=== PATIENT | female | born 1985 | race Caucasian/White ===

== ENCOUNTER 2024-06-02 16:22 | Emergency (ER) | payer BC, SELFPAY ==
[2024-06-02 16:24] VITALS: BP 112/73; PULSE 106; RESP 16; TEMP 36.8; O2SAT 98; BMI 25.7
--- NOTE | 2024-06-02 17:42 | ED_ITS ---
HPI - General Adult General Chief complaint: Altered Mental Status Stated complaint: slurred speech past few days Time Seen by Provider: 06/02/24 16:26 History of Present Illness HPI narrative: This 39-year-old female comes in reporting slurred speech or slower speech over the last 2 or 3 days. She feels like this is getting worse. As I speak with her and this encounter I do not notice any change in her speech but I do notice that she seems to have asymmetric lips when she is speaking. Her lips seem to deviate to the right when speaking but otherwise she has no facial asymmetry. The patient states that she has a history of multiple sclerosis which was diagnosed about 12 or 13 years ago. She was on IV steroids for a while but since then has not been on any medications and has been doing well. She wonders if this is a flare up of her MS. She does not report a headache. Related Data Home Medications ?Medication ?Instructions ?Recorded ?Confirmed No Known Home Medications 06/02/24 06/02/24 Allergies Allergy/AdvReac Type Severity Reaction Status Date / Time No Known Drug Allergies Allergy Verified 06/02/24 16:29 Review of Systems Status of ROS: Reports: 10 or more systems reviewed and unremarkable except as noted in History and below Narrative: Constitutional: No fevers, no weight gain or loss. Eyes: No discharge. No vision changes. HENT: No congestion, no sore throat, no ear pain. Cardiovascular: No chest pain, no palpitations. Respiratory: No shortness of breath, no wheezes, no cough. Gastrointestinal: No abdominal pain, no vomiting, no diarrhea. Genitourinary: No dysuria, no hematuria. Musculoskeletal: Normal range of motion. Skin: No rashes, no pruritis. Neurological: No dizziness, weakness, sensory change. She reports slower speech that is slurred at times. Endo/Heme/Allergies: No bruising or bleeding. No polydipsia. Pysch: no suicidality, no anxiety, no insomnia. All other systems reviewed and are negative. [facility] Social History Smoking Status: Current every day smoker What tobacco products do you use: cigarettes Smoking packs per day: 0.5 Smoking cigarettes per day: 10.0 Years smoked: 10 Smoking pack-years: 5.00 Do you use any of these nicotine containing products: Vaping Products Second hand tobacco smoke exposure: Yes How often do you have a drink containing alcohol: monthly or less AUDIT-C Alcohol total score: 1 Non-prescribed substance use: denies use Exam Narrative: Exam Narrative: Constitutional: Well-developed, well-nourished, no acute distress. HEENT: Normocephalic, atraumatic. Neck: Normal range of motion. Nontender. Supple. Heart: Regular. No murmurs. Normal rate. Intact distal pulses. Lungs: Clear to auscultation. No chest discomfort. No wheezes, rhonchi, or rales. Abdomen: Normal bowel sounds. Nontender. No rebound tenderness. Genitalia: Deferred. Back: No midline tenderness. Normal range of motion. Extremities: Normal range of motion. No injury. Skin: Intact. No rash. Warm. No erythema or pallor. Neurologic: No altered sensation. No weakness. Alert and oriented. Tongue is midline. [id number] is normal. No pronator drift. Industrial Machine System Technician strength is equal bilaterally. Able to raise each leg from the bed. When speaking her lips seemed to deviate a bit to the right but otherwise there is no facial asymmetry. Psychiatric: No suicidality. No anxiety or depression. No insomnia. Nursing notes and vitals signs are reviewed. Const: Vital Signs, click to edit/add: Vital Signs - 24 hr 06/02/24 16:24 Temperature 98.2 F Pulse Rate [Pulse Oximeter] 106 H Respiratory Rate 16 Blood Pressure [Ri ght Upper Arm] 112/73 Pulse Oximetry 98 Oxygen Delivery Me thod Room Air Course Vital Signs Vital signs: Initial Vital Signs Temperature 98.2 F 06/02/24 16:24 Temperature Source Temporal Artery Scan 06/02/24 16:24 Pulse Rate 106 H 06/02/24 16:24 Respiratory Rate 16 06/02/24 16:24 Blood Pressure 112/73 06/02/24 16:24 Blood Pressure Mean 86 06/02/24 16:24 Blood Pressure Position Sitting 06/02/24 16:24 Pulse Oximetry 98 06/02/24 16:24 Oxygen Delivery Method Room Air 06/02/24 16:24 Vital Signs Temperature 98.2 F 06/02/24 16:24 Pulse Rate 106 H 06/02/24 16:24 Respiratory Rate 16 06/02/24 16:24 Blood Pressure 112/73 06/02/24 16:24 Pulse Oximetry 98 06/02/24 16:24 Oxygen Delivery Method Room Air 06/02/24 16:24 Temperature 98.2 F 06/02/24 16:24 Pulse Rate 106 H 06/02/24 16:24 Respiratory Rate 16 06/02/24 16:24 Blood Pressure 112/73 06/02/24 16:24 Pulse Oximetry 98 06/02/24 16:24 Oxygen Delivery Method Room Air 06/02/24 16:24 Medical Decision Making MDM Narrative Medical decision making narrative: This patient comes in with speech changes as described above. Her neurologic exam is completely normal except for the fact that her lip seem to deviate to bit to the right when speaking. I did speak with the neurologist food and nutrition professor regarding these findings who recommended an MRI. This is the weekend so MRI is not available here today. The neurologist stated that it would be okay to get this done on Tuesday. I did place an order for this to occur. The patient will hopefully get a call from Radiology when this can occur but I advised her to call for directions if not hearing any such plans. I also advised her regarding signs and symptoms that would indicate a need for return and re-evaluation. Discharge Plan Discharge Clinical Impression: Alteration in speech, Multiple sclerosis Patient Disposition: Home, Self-Care Condition: Stable Additional Instructions: Return on Tuesday for MRI with and without contrast. You should get a call from the radiology department as to when this should occur. If not, call [phone] and ask for the radiology department. Return if worsening symptoms happen. Prescriptions: No Action No Known Home Medications Stand Alone Forms: FD9 Group Info Instructions
--- OUTSIDE RECORDS SUMMARY | 2024-06-02 17:54 | XMS_ITS | Clinical Summary ---
Author Organization [facility] Address [address] [place] [address] Care Team Providers Care Forestry Crew Chief Name Role Phone Jia Gutierrez MD Primary Care Provider Lelia Shannon RD Unavailable [phone] Allergies No known active allergies Medications milk receiver (Dexcom G7 Director Enterprise Sales) for continuous blood glucose monitor (CGM)Indication s:Type 2 diabetes mellitus without complication, without long-term current use of insulin (HC) This is for the glucose MARKETING ADMIN , also order the sensors. 1 Each 12/21/2023 Active sensor (Dexcom G7 Sensor) for continuous blood glucose monitor (CGM)Indication s:Type 2 diabetes mellitus without complication, without long-term current use of insulin (HC) To be used to read blood sugars, change sensor every 10 days. This is for the glucose SENSOR, also order the milk receiver. 9 Each 3 12/21/2023 Active metFORMIN (GLUCOPHAGE XR) 500 mg Extended-Releas e tabletIndicatio ns:Type 2 diabetes mellitus without complication, without long-term current use of insulin (HC) Take 4 Tablets (2,000 mg) by mouth once daily. 400 Tablet 3 03/22/2024 Active empagliflozin (JARDIANCE) 10 mg tabletIndicatio ns:Type 2 diabetes mellitus without complication, without long-term current use of insulin (HC) Take 1 Tablet (10 mg) by mouth once daily. 100 Tablet 03/22/2024 Active Active Problems Problem Noted Date Diagnosed Date Type 2 diabetes mellitus wit hout complication, without long-term current use of insulin 12/12/2023 Iron deficiency anemia 06/15/2016 Multiple sclerosis 07/06/2012 Depression with anxiety Tobacco use Resolved Problems Problem Noted Date Diagnosed Date Resolved Date Pap smear for cervical cancer screening 08/27/2022 03/22/2024 Overview (08/27/2022): 07/2022 NIL/HPV Negative Plan: Pap/HPV testing due in 5 years Prediabetes 07/26/2022 03/22/2024 Outcome of delivery, single liveborn 01/01/2014 02/26/2014 Supervision of other high-ri sk (V23.89) 12/26/2013 06/15/2016 Supervision of other normal 05/04/2013 02/26/2014 Overview (11/27/2013): Has MS- will bottle feed so she can go back on medication - plan for soy formula due to family history of milk protein allergy History gestational diabetes- need to do 1 hour glucose as soon as she is feeling better ( = 127 at 16 weeks ) at 20 ( = 103) and 28 weeks = 144, told to do 3 hour GTT=3/4 pass Hemoglobin = 9.2, started on oral iron twice daily - can recheck at 33 weeks 9.3 History of delivery History of hemorrhage Genetic counseling and antepartal testing discussed - wants the 20-22 week.ultrasound ultrasound reassuring, girl Pediatrics - [place] Some labor symptoms - work up negative 11/06/13 Flu shot given 11/07/2013 Anemia due to acute blood loss 06/07/2010 05/04/2013 PROM (premature rupture of membranes) 06/06/2010 05/04/2013 Normal delivery 06/06/2010 05/04/2013 Other immediate h emorrhage, unspecified as to episode of care 06/06/20102013 Gestational diabetes 04/09/2010 014 Supervision of normal first 11/03/2009 05/04/2013 Tobacco use disorder 014 Encounters Date Type Department Care Team Description 03/22/2024 7:40 AM MOP MAN Office Visit [facility] [address] [place] [address] Jia Gutierrez MD Physical; Diabetes 03/22/2024 Travel from Last 3 Months Immunizations Immunization Administration Dates Next Due AMB Influenza, IIV4 PF (=>6 mos Flulaval,Fluzone Fluarix)(Flu Clinic Only) 01/10/2017 HepA-HepB (Twinrix) 12/12/2023 Influenza, IIV3 (Age >=3 years) 01/12/2010 Influenza, IIV4 11/07/2013 Tdap 12/12/2023,10/09/2013,06/08/2010 Family History Medical History Relation Name Comments No Known Problems Daughter Ainslie Diabetes Father Hyperlipidemia Father Hypertension Father Stroke Father Cystic fibrosis Half-Brother Charley Diabetes Half-Brother Charley Diabetes Maternal Grandfather Type 2 No Known Problems Mother COPD Paternal Grandfather Mesothelioma (HC) Paternal Grandfather Cancer-colon Paternal Grandmother Diabetes Paternal Grandmother Type 2 Stroke Paternal Grandmother Asthma Son Michelet Relation Name Status Comments Daughter Ainslie Alive Father Alive Half-Brother Charley Alive Maternal Grandfather (Age 47) Maternal Grandmother (Age 93) Mother Alive Paternal Grandfather (Age 77) Paternal Grandmother (Age 80) Son Michelet Alive Social History Tobacco Use Types Packs/Day Years Used Date Smoking Tobacco: Every Day Cigarettes 0.5 19.2 Started: 2005 Smokeless Tobacco: Never Tobacco Cessation:Ready to Q uit: No; Counseling Given: Yes Alcohol Use Standard Drinks/Week Comments Yes 1 (1 standard drink = 0.6 oz pur e alcohol) PHQ-2 Answer Date Recorded PHQ-2 TOTAL SCORE 0 03/22/2024 Social Connections Answer Date Recorded Do you often feel lonely or isolated from those around you? 0 12/07/2023 Financial Resource Strain Answer Date R ecorded Difficulty of Paying Living Expenses 3 12/07/2023 Difficulty of Paying Living Expenses Not on file 12/07/2023 Food Insecurity Answer Date Recorded Do you worry your food will run out before you are able to buy more? 1 12/07/2023 Transportation Needs Answer Date Record ed Does lack of transportation keep you from medica l appointments? 1 12/07/2023 Does lack of transportation keep you from work, meetings or getting things that you need? 1 12/07/2023 Housing Stability Answer Date Recorded What is your housing situation today? 1 12/07/2023 Interpersonal Safety Answer Date Record ed Are you being hit, kicked, p ushed or yelled at (see row info)? No 12/05/2023 Interpersonal Safety Abuse 12 - 18 Not on file 12/05/2023 Interpersonal Safety Ambulatory Vulnerability No t on file 12/05/2023 Utilities Answer Date Recorded Do you have trouble paying f or utilities (for example, heat, electricity, water, phone)? 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 file Not on file Not on file Obstetrics History Para Term AB IAB SAB Ectopic Multiple Livin g Live Births 2 2 1 1 0 0 0 0 0 2 2 Date Outcome GA Total Labor Labor/2nd/3rd Weight Sex Type Anes PTL Dee A1 A5 Name Clin 2010 36w 6d 17h 00m/ 3.09 kg (6 lb 13 oz) M Vag Epidur al Y Livin g Michelet Delivery Location:[facility] Comments: he morrhage / gestational diabetes 2013 Term 41w 0d 4h 00m/ 3.4 kg (7 lb 8 oz) F Vag IV Meds N Livin g 9 9 Ainsli e [facility] Delivery Location:[facility] Comments:1st degree re paired Last Filed Vital Signs Vital Sign Reading Time Taken Comments Blood Pressure 108/74 03/22/2024 7:52 AM MOP MAN Pulse 90 03/22/2024 7:52 AM MOP MAN Temperature 36.8 C (98.3 F) 12/05/2023 10:41 AM CDT Respiratory Rate 16 12/05/2023 10:41 AM CDT Oxygen Saturation 97% 03/22/2024 7:52 AM MOP MAN Inhaled Oxygen Concentration - - Weight 65.9 kg (145 lb 3.2 oz) 03/22/2024 7:52 A M MOP MAN Height 159.5 cm (5' 2.8) 03/22/2024 7:52 AM MOP MAN Body Mass Index 25.89 03/22/2024 7:52 AM MOP MAN Plan of Treatment Upcoming Encounters Date Type Department Care Team (Late st Contact Info) Description 06/21/2024 7:40 AM CDT Office Visit [facility] [address] [place], [place] [id number] [place] [address] [place], [place] [id number] Health Maintenance Due Date Last Done Comments Pneumococcal series for age 6-49 (1 of 2 - PCV) 2004 COVID-19 vaccine series (1 - season) 2023 Influenza Vaccine (#1) 2023 7, 11/07/2013, 01/12/2010 Hepatitis B series for Diabe naomi (2 of 3 - Hep B Twinrix 3-dose series) 01/09/2024 12/12/2023 BMI (ht and wt on same day) for age 18+ 03/22/2025 03/22/2024, 07/22/2022, 10/24/2021, Additional history exists Depression screening for age 12+ 03/22/2025 03/22/2024, 07/22/2022, 12/22/2020, Additional history exists Pap test for age 21-65 07/23/2027 , 07/22/2022, 06/15/2016, Additional history exists Tetanus booster 12/11/2033 12/12/2023, 09/12, 06/08/2010 HIV for age 15-65 Completed 05/04/2013, 11/03/2009 Hepatitis C screening for ag e 18-79 Completed 07/22/2022 Tdap Completed 12/12/2023, 09/12, 06/08/2010 Procedures Procedure Name Priority Date/Time Associated Diagnosis Comments URINE ALBUMIN TO CREATININE RATIO, RANDOM Routine 03/22/2024 8:26 AM MOP MAN Type 2 diabetes mellitus without complication, without long-term current use of insulin (HC) LIPID PANEL W REFLEX MEASURED LDL Routine 03/22/2024 7:45 AM MOP MAN Type 2 diabetes mellitus without complication, without long-term current use of insulin (HC) BASIC METABOLIC PANEL Routine 03/22/2024 7:45 AM MOP MAN Type 2 diabetes mellitus without complication, without long-term current use of insulin (HC) HEMOGLOBIN A1C MONITORING (POCT) Routine 03/22/2024 7:43 AM MOP MAN Type 2 diabetes mellitus without complication, without long-term current use of insulin (HC) LC HCV ANTIBODY RFX TO QUANT PCR Routine 07/22/2022 8:20 AM CDT Need for hepatitis C screening test HPV HIGH RISK Routine 07/22/2022 8:00 AM CDT Screening for cervical cancer ANTI HIV 1/2 Routine 05/04/2013 4:12 PM MOP MAN Supervision of other normal from Last 3 Months or Most Recently Relevant to Health Maintenance Results * URINE ALBUMIN TO CREATININE RATIO, RANDOM (03/22/2024 8:26 AM MOP MAN) ALB RAND URINE <12.0 mg/L 03/22/2024 5:19 PM MOP MAN [facility] CREATININE,URINE 1.55 g/L 03/22/19 5:19 PM MOP MAN [facility] ALBUMIN TO CREATININE RATIO,RAND UR 03/22/2024 5:19 PM MOP MAN [facility] Comment:Urine Albumin below measurement range, unable to calculate. Urine URINE SPECIMEN / Unknown Non-Blood / Unknown 03/22/2024 8:26 AM MOP MAN 03/22/2024 8:26 AM MOP MAN Narrative [facility] - 03/22/2024 5:19 PM MOP MAN If Albumin to Creatinine Ratio is elevated, consider the following: Elevations seen with incipient nephropathy associated with diabetes mellitus or hypertension. Stress, exercise,hematuria, and urinary tract infection may also produce elevated results. If clinically indicated, confirm with 24 Hour Albumin to Creatinine Ratio. Jia Gutierrez MD URINE Final R esult [facility] [address] [place] [address], * (ABNORMAL) LIPID PANEL W REFLEX MEASURED LDL (03/22/2024 7:45 AM MOP MAN) CHOLESTEROL, TOTAL 224(H) <200 mg/dL [facility] HDL CHOLESTEROL 41(L) > OR = 50 mg/dL [facility] TRIGLYCERIDES 249(H) <150 mg/dL [facility] Comment: If a non-fasting specimen was collected, consider repeat triglyceride testing on a fasting specimen if clinically indicated. Brodie et al. J. of Clin. Lipidol. 2015;9:129-169. LDL-CHOLESTEROL 145(H) mg/dL (calc) [facility] Comment: Reference range: <100 Desirable range <100 mg/dL for primary prevention; <70 mg/dL for patients with CHD or diabetic patients with > or = 2 CHD risk factors. LDL-C is now calculated using the Randall-Castro calculation, which is a validated novel method providing better accuracy than the Friedewald equation in the estimation of LDL-C. Randall SS et al. BULMARO. 2013;310(19): 5272-7481 (http://education.Liquid Computing/faq/HXP127) CHOL/HDLC RATIO 5.5(H) <5.0 (calc) [facility] NON HDL CHOLESTEROL 183(H) <130 mg/dL (calc) [facility] Comment: For patients with diabetes plus 1 major ASCVD risk factor, treating to a non-HDL-C goal of <100 mg/dL (LDL-C of <70 mg/dL) is considered a therapeutic option. Blood BLOOD SPECIMEN / Unknown 03/22/2024 7:45 AM MOP MAN 03/22/2024 7:45 AM MOP MAN Jia Gutierrez MD CHEMISTRY Final R esult [facility] [address] [address], [place] [phone] [facility] [address] [place] [address] * (ABNORMAL) BASIC METABOLIC PANEL (03/22/2024 7:45 AM MOP MAN) [facility] GLUCOSE 270(H) 65 - 99 mg/dL [facility] Comment: Fasting reference interval For someone without known diabetes, a glucose value >125 mg/dL indicates that they may have diabetes and this should be confirmed with a follow-up test. UREA NITROGEN (BUN) 12 7 - 25 mg/dL [facility] CREATININE 0.71 0.50 - 0.97 mg/dL [facility] EGFR 111 > OR = 60 mL/min/1. 73m2 [facility] BUN/CREATININE RATIO SEE NOTE: 6 - 22 (calc) [facility] Comment: Not Reported: BUN and Creatinine are within reference range. SODIUM 134(L) 135 - 146 mmol/L [facility] POTASSIUM 4.7 3.5 - 5.3 mmol/L [facility] CHLORIDE 99 98 - 110 mmol/L [facility] CARBON DIOXIDE 28 20 - 32 mmol/L [facility] ELECTROLYTE BALANCE 7 7 - 17 mmol/L (calc) [facility] CALCIUM 9.7 8.6 - 10.2 mg/dL [facility] Blood BLOOD SPECIMEN / Unknown 03/22/2024 7:45 AM MOP MAN 03/22/2024 7:45 AM MOP MAN us Jia Gutierrez MD CHEMISTRY Final R esult [facility] [address] [place] [address], [facility] [address] [place] [address] * (ABNORMAL) HEMOGLOBIN A1C MONITORING (POCT) (03/22/2024 7:43 AM MOP MAN) [facility] POC HEMOGLOBIN A1C 8.8(H) <6.0 % OF TOTAL HGB [facility] Comment: Any point of care results exhibiting inconsistency with the patient's clinical status should be repeated using a different testing method. Blood BLOOD SPECIMEN / Unknown 03/22/2024 7:43 AM MOP MAN 03/22/2024 7:43 AM MOP MAN us Jia Gutierrez MD CHEMISTRY Final R esult [facility] [address] [place] [address], [facility] [address] [facility], [place] [address] * LC HCV ANTIBODY RFX TO QUANT PCR (07/22/2022 8:20 AM CDT) [facility] HCV Ab Non Reactive Non Reactive 07/24/2022 1:[address] [facility] Blood BLOOD SPECIMEN / Unknown Venipuncture / Unknown 07/22/2022 8:20 AM CDT 07/22/2022 8:[address] [facility] - 07/24/2022 1:08 PM CDT Performed at: [address] [place] [id number] Oil Pipe Inspector Helper: Kun Grijalva MD, Phone: [phone] us Maria L Soriano MD LABORATORY Final Resul t [facility] [address] [place] [id number] * HPV HIGH RISK (07/22/2022 8:00 AM CDT) [facility] TYPE 16 Negative Negative 07/27/2022 3:52 PM CDT [facility] TYPE 18 Negative Negative 07/27/2022 3:52 PM CDT [facility] OTHER HIGH RISK TYPES Negative Negative 07/27/2022 3:52 PM CDT [facility] Other (Cervical) Non-Blood / Unknown 07/22/2022 8:00 AM CDT 07/26/2022 10:45 AM CDT Narrative [facility] - 07/27/2022 3:52 PM CDT HPV types 16, 18, 31, 33, 35, 39, 45, 51, 52, 56, 58, 59, 66 and 68 DNA were undetectable or below the pre-set threshold. Methodology: Thiago Dorene 4800 HPV Test us Maria L Soriano MD MICROBIOLOGY Final Resul t [facility] [address] [place] [address], * ANTI HIV 1/2 (05/04/2013 4:12 PM MOP MAN) ANTI HIV 1/2 Non-reacti ve [facility] Blood specimen (specimen) BLOOD SPECIMEN / Unknown 05/04/2013 4:12 PM MOP MAN 05/04/2013 4:02 PM MOP MAN us Rashida Evans MD SEND OUTS Final Resu lt [facility] INTERNAL ZIP [address] [place] [address] from Last 3 Months or Most Recently Relevant to Health Maintenance Insurance [facility] Advance Directives * Full Code (Latest Code Status on File) Date Activated Date Inactivated Comments 01/01/2014 9:36 PM 01/03/2014 1:11 PM * Full Code Date Activated Date Inactivated Comments 01/01/2014 8:04 PM 01/01/2014 9:36 PM * Full Code Date Activated Date Inactivated Comments 12/10/2013 9:25 PM 12/11/2013 1:57 AM * Full Code Date Activated Date Inactivated Comments 11/05/2013 10:39 PM 11/06/2013 5:36 AM * Full Code Date Activated Date Inactivated Comments 06/06/2010 8:22 PM 06/08/2010 4:31 PM Care Teams Forestry Crew Chief Relationship Specialty [place] [address] [place] [address] PCP - General Family Practice 12/21/[address] [place] [address] [place] [address] Crocheter Hand Club Attendant 01/05/24 5
== END 2024-06-02 18:12 | disposition home or self-care (01) ==
LOC: ED 17:51
PROVIDERS: Emergency Provider Emergency Medicine Emergency Medical Services
DX: R47.9 Unspecified speech disturbances (principal); G35 Multiple sclerosis
CPT/HCPCS: 99282; 99283; 99284

== ENCOUNTER 2024-06-04 11:34 | Outpatient (CLI) | payer BC, SELFPAY ==
--- NOTE | 2024-06-04 11:15 | CRLHL7_ITS ---
For Patients: As a result of the Century Cures Act, medical imaging exams and procedure reports are released immediately into your electronic medical record. You may view this report before your referring provider. If you have questions, please contact your health care provider. INDICATION: Multiple sclerosis. Slurred speech. COMPARISON: None. TECHNIQUE: Multiplanar T1, T2, FLAIR and diffusion-weighted imaging. Post gadolinium T1 weighted sequences. Dotarem 13 cc IV. FINDINGS: Multiple T2/FLAIR signal hyperdense lesions with the periventricular and subcortical white matter of both cerebral hemispheres compatible with demyelinating plaques. Patchy T2/FLAIR signal hyperintense lesions of the brainstem also likely represent demyelinating plaques. Dominant white matter lesion within the juxtacortical white matter of the posterior right frontal lobe measures 18 mm in diameter and demonstrates mild enhancement (post gadolinium series 10, image 31). Finding is consistent with an actively demyelinating plaque. Similar patchy enhancement of a white matter lesion of the left posterior badillo radiata (series 10, image 28) also concerning for an actively demyelinating plaque. Otherwise, mild T1 hypointense lesion load. No other enhancing white matter lesions. No significant cerebral volume loss or atrophy. No intracranial hemorrhage. No abnormal ventricular dilatation. Intracranial vascular flow voids are preserved. No mass effect or midline shift. No restricted diffusion to suggest acute ischemia. Bilateral orbits are unremarkable. Normal appearing sella. Visualized paranasal sinuses and mastoid air cells are unremarkable. IMPRESSION: 1. Mild supratentorial and infratentorial T2 hyperintense white matter lesions compatible with demyelinating plaques. 2. Enhancement of white matter lesions within the juxtacortical white matter of the posterior right frontal lobe and left posterior badillo radiata likely represent actively demyelinating plaques. 3. Mild T1 hypointense lesion load. 4. No significant cerebral volume loss or atrophy. 5. No intracranial hemorrhage. No restricted diffusion to suggest acute ischemia Dictated by Van De La Garza MD @ 06/04/2024 2:57:29 PM (Electronically Signed)
== END 2024-06-04 11:35 | disposition home or self-care (01) ==
LOC: MRI 11:35
PROVIDERS: PCP Family Medicine; Visit Provider Family Medicine
DX: G35 Multiple sclerosis (principal); G93.9 Disorder of brain, unspecified; R47.81 Slurred speech; R29.810 Facial weakness; Z82.0 Family history of epilepsy and other diseases of the nervous system
CPT/HCPCS: 70553; A9575

== ENCOUNTER 2024-09-17 11:40 | Emergency (ER) | payer BC, SELFPAY ==
--- OUTSIDE RECORDS SUMMARY | 2024-09-17 11:41 | XMS_ITS | Clinical Summary ---
Author Organization [facility] Address [address] , [address] [place] [address] Phone Care Team Providers Care Data Collection Associate Name Role Phone 2CareTeamNurse-MA, 2CareTeamNurse-MA Unavailable Unavailable Conditions or Problems Problem Name Problem Code Onset Date Status Entry Date Provider Comment Standard Description Annotate Vitamin D deficiency 13681300 (SNOMED CT) Active Amy Martinez PA-C Vitamin D deficiency Multiple sclerosis 10392216 (SNOMED CT) Active Mechelle Capone DO Multiple sclerosis Medications Medication Instructions Start Date Stop Date Generic Name [facility] Provider VITAMIN D (ERGOCALCIFER OL) 1.25 MG (70022 UT) CAPS Take 1 tab PO q weekly for 8 weeks ergocalciferol (vitamin d2) [id number] Mechelle Capone DO DEXCOM G7 SENSOR blood-glucose sensor [id number] Mechelle Capone DO Medications Administered No information available. Allergies, Adverse Reactions, Alerts No information available. Results Date Name Value Unit Range Flag Description Replaced Document: (P) HIV 1 /2 ANTIGEN/ANTIBODY,FOURTH GENERATION W/RFL, COMPRE ... VITD 25OH TO * VITAMIN D, 25 OH, TOTAL HCV VIRUS AB * Hepatiti s C virus 5-1-1 Ab [Presence] in Serum by Immunoblot ANTI-HBC * Hepatitis B virus core Ab [Presence] in Serum ANTI-HBS * Hepatitis B virus surface Ab [Presence] in Serum BASOPHIL % 0.4 % N Basophils/ 100 leukocytes in Blood by Manual count EOSINOPHIL % 1.2 % N Eosinoph ils/100 leukocytes in Blood by Manual count MONOCYTE % 4.0 % N Monocytes/ 100 leukocytes in Blood by Automated count LYMPHS % 20.2 % N Lymphocytes/ 100 leukocytes in Blood by Automated count PMN % 74.2 % N Neutrophils/1 00 leukocytes in Blood by Automated count BASOPH COUNT 44 CELLS/UL 10*3/mm3 0-200 N Bas ophils [#/volume] in Blood by Manual count EOS COUNT 131 CELLS/UL 10*3/mm3 15-500 N eosin ophil count, blood MONOSCT AUTO 436 CELLS/UL 10*3/uL 200-950 N Mon ocytes [#/volume] in Blood by Automated count LYMPH COUNT 2202 CELLS/UL 10*3/mm3 850-3900 N l ymphocyte count, blood NEUTRO COUNT 8088 CELLS/UL 10*3/mm3 8102-5509 H neutrophil count, blood MPV 11.4 fL 7.5-12.5 N Platelet octavia n volume [Entitic volume] in Blood by Daily PLATELETS 254 THOUSAND/UL 10*3/mm3 140-400 N Platelets [#/vol ume] in Blood by Automated count RDW 14.8 % 11.0-15.0 N Erythrocyte distribution width [Ratio] by Automated count MCHC 32.4 G/DL 32.0-36.0 N MCHC [Mass/ volume] by Automated count MCH 26.5 pg 27.0-33.0 L MCH [Entiti c mass] by Automated count MCV 82.0 fL 80.0-100.0 N MCV [Entit ic volume] by Automated count HCT 41.4 % 35.0-45.0 N Hematocrit [Volume Fraction] of Blood by Automated count HGB 13.4 g/dL 11.7-15.5 N Hemoglobin [Mass/volume] in Blood RBC 5.05 MILLION/UL 10*6/mm3 3.80-5.10 N Erythrocytes [#/volume] in Blood by Automated count WBC 10.9 THOUSAND/UL 10*3/mm3 3.8-10.8 H Leukocytes [#/volume] in Blood by Automated count COMMENT#1 * COMMENT #1 ABS LYMPHOCY * 10*3/uL Absolute Lymphocytes CD4/CD8 % * % T-helper ce lls (CD4) to T-suppressor cells (CD8) ratio ABSOLUTE CD8 * absolute CD8 T-SUPPRESS % * % T-suppre ssor cells (CD8) as percent of blood lymphocytes ABSOLUTECD4 * {Cells}/u L Absolute CD4 T-HELPER % * % T-helper c ells (CD4) as percent of blood lymphocytes SGPT (ALT) * U/L Alanine aminotransferase [Enzymatic activity/volume] in Serum or Plasma SGOT (AST) * U/L Aspartate aminotransferase [Enzymatic activity/volume] in Serum or Plasma ALK PHOS * U/L Alkaline felisha sphatase [Enzymatic activity/volume] in Blood BILI TOTAL * mg/dL Bilirubin. total [Mass/volume] in Serum or Plasma A/G RATIO * Albumin/Ambar bulin [Mass Ratio] in Serum or Plasma GLOBULIN TOT * g/dL Globulin [Mass/volume] in Serum ALBUMIN * g/dL Albumin [Mass/volume] in Serum or Plasma PROTEIN, TOT * g/dL Protein [Mass/volume] in Serum or Plasma CA * mg/dL Calcium [Mass/volume] in Serum or Plasma CO2 TOTAL * mmol/L carbon diox bruno, serum, total CHLORIDE * mmol/L Chloride [Moles/volume] in Serum or Plasma POTASSIUM * mmol/L Potassium [Moles/volume] in Serum or Plasma SODIUM * mmol/L Sodium [Moles/volume] in Serum or Plasma BUN/CREAT * Urea nitrogen/Creatinine [Mass Ratio] in Serum or Plasma CREATININE * mg/dL Creatinine [Mass/volume] in Serum or Plasma BUN * mg/dL Urea nitrogen [Mass/volume] in Serum or Plasma GLUCOSE SER * mg/dL Glucose [Mass/volume] in Serum or Plasma HIV AB * HIV 2 gp125 A b [Presence] in Serum by Immunoblot Replaced Document: (P) STRAT RHIANNA JCV(R) DxSELECT AB (W/INDEX)W/RFL INHIB JCV AB W/RFX * JCV Ab w ith Reflex to Inhibition Assay [id number] 0.28 index H GE use o nly - for LinkLogic import when terms are not otherwise specified Office Visit: MS EDUCATION / FLUP Chart Note JCV ANTIBODY Negative JCV Ant ibody Results Plan of Care Type Date Detail Appointment 08:30 AM [address] [facility], [facility] [address], [place], [address], Appointment 02:00 PM Mechelle Missael johnson DO, [address] [facility], [facility] [address], [place], [address], Referral Other Referral Referral Other Referral Pending order Ocrevus Infusion Pending order Follow up Pending order Vitamin D 25 Hyd conrado Pending order Vitamin D 25 Hyd conrado Pending order MRI-Brain W/WO Pending order MS Education wit h JENNA Pending order Solumedrol Infus ion #1: Acute MS Flare/Optic Neuritis/Transverse Myelitis Pending order Solumedrol Infus ion #1: Acute MS Flare/Optic Neuritis/Transverse Myelitis Pending Order exclud ed from report: Pending order MRI-Brain W/WO M S Protocol Pending order Follow up Pending order Patient Instruct ions Pending order Patient Instruct ions Pending order Vitamin D 25 Hyd conrado Pending order Physical Therapy Pending order Physical Therapy Pending order Vitamin D 25 Hyd conrado Pending Order exclud ed from report: Pending order MRI-Cervical W/W O MS Protocol Pending order MRI-Thoracic W/W O MS Protocol Pending order Solumedrol Infus ion #1: Acute MS Flare/Optic Neuritis/Transverse Myelitis Pending order Vitamin D 25 Hyd conrado Pending order Ocrevus Infusion Pending order CBC with Diff/Pl atelet Pending order Comp Metabolic P benja (14) Pending order Hepatitis B Core Ab Pending order Hepatitis B Surf colt Ab Pending order Hepatitis B Surf colt Antigen Pending order Hepatitis C Ab ( HCV) Pending order HIV 1/2 Ab Scree smita Pending order TANNER Virus Antibod y w/Reflex to Inhibition Assay Pending order CD4/CD8 Ratio Pr ofile Pending order Obtain outside r ecords Pending order Obtain outside r ecords Procedures Code Procedure Name Date Entry Date ORDERS Solumedrol Infusion #1: Acute MS Flare/Optic Neuritis/Transverse Myelitis CPT-G2466P ProHance Gadolinium-based MR Contrast - 1 5 ml vial CPT-40314 MRI Brain W/WO CPT-T4947J ProHance Gadolinium-based MR Contrast - 1 5 ml vial [id number] MRI-Brain W/WO MS Protocol 2 ORDERS Vitamin D 25 Hydroxy ORDERS Patient Instructions ORDERS Patient Instructions ORDERS MS Education with JENNA 06/12 CPT-D7270E ProHance Gadolinium-based MR Contrast - 1 5 ml vial CPT-80068 MRI Cervical W/WO CPT-74466 MRI Thoracic W/WO [id number] MRI-Thoracic W/WO MS Protocol [id number] MRI-Cervical W/WO MS Protocol CPT-W7553B ProHance Gadolinium-based MR Contrast - 1 5 ml vial ORDERS Solumedrol Infusion #1: Acute MS Flare/Optic Neuritis/Transverse Myelitis ORDERS Vitamin D 25 Hydroxy ORDERS CBC with Diff/Platelet 06/12 ORDERS Comp Metabolic Panel (14) 06/07/00 ORDERS CD4/CD8 Ratio Profile 06/12 ORDERS Hepatitis B Core Ab ORDERS Hepatitis B Surface Ab 06/12 ORDERS Hepatitis B Surface Antigen ORDERS Hepatitis C Ab (HCV) CPT-G2211 Complex e/m visit add on 07/15/00 ORDERS TANNER Virus Antibody w/Reflex to Inhibition Assay ORDERS HIV 1/2 Ab Screening Vital Signs Date Name Value Unit Description Weight Measured 140 [lb_av] weight E& M Weight Measured 140 [lb_av] weight E& M Immunizations No information available. Advance Directives No information available.
--- OUTSIDE RECORDS SUMMARY | 2024-09-17 11:42 | XMS_ITS | Clinical Summary ---
Author Organization [facility] Address [address] [place] [address] Care Team Providers Care Radio Equipment Repairer Name Role Phone Jia Gutierrez MD Primary Care Provider Allergies No known active allergies Medications senior structural engineer (Dexcom G7 [employer] Academic Coach) for continuous blood glucose monitor (CGM)Indication s:Type 2 diabetes mellitus without complication, without long-term current use of insulin (HC) This is for the glucose WOOD SAWYER , also order the sensors. 1 Each 12/21/2023 Active sensor (Dexcom G7 Sensor) for continuous blood glucose monitor (CGM)Indication s:Type 2 diabetes mellitus without complication, without long-term current use of insulin (HC) To be used to read blood sugars, change sensor every 10 days. This is for the glucose SENSOR, also order the senior structural engineer. 9 Each 3 12/21/2023 Active metFORMIN (GLUCOPHAGE [...] Encounters Date Type Department Care Team Description 08/05/2024 Transcribe Orders [facility] - [address] [place] [address] Amy Martinez PA-C 07/10/2024 8:30 AM CDT Ancillary Procedure [facility] [address] 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 on file Not [...] Epidur al Y Livin g [place] Delivery Location:[facility] Comments: he morrhage / gestational diabetes 2013 Term 41w 0d 4h 00m/ 3.4 kg (7 lb 8 oz) F Vag IV Meds N Livin g 9 9 Ainsli e [facility] Delivery Location:[place] Comments:1st degree re paired Last Filed Vital Signs Vital Sign Reading Time Taken Comments Blood Pressure 108/74 03/22/2024 7:52 AM MORTAR CARRIER Pulse 90 03/22/2024 7:52 AM MORTAR CARRIER Temperature 36.8 C (98.3 F) 12/05/2023 10:41 AM CDT Respiratory Rate 16 12/05/2023 10:41 AM CDT Oxygen Saturation 97% 03/22/2024 7:52 AM MORTAR CARRIER Inhaled Oxygen Concentration - - Weight 65.9 kg (145 lb 3.2 oz) 03/22/2024 7:52 A M MORTAR CARRIER Height 159.5 cm (5' 2.8) 03/22/2024 7:52 AM MORTAR CARRIER Body Mass Index 25.89 03/22/2024 7:52 AM MORTAR CARRIER Plan of Treatment Health Maintenance Due Date Last Done Comments Pneumococcal series for age 6-49 (1 of 2 - PCV) 2004 COVID-19 vaccine series (1 - season) 2023 Hepatitis B series for 19+ ( 2 of 3 - Hep B Twinrix 3-dose series) 01/09/2024 12/12/2023 Influenza Vaccine (#1) 2024 7, 11/07/2013, 01/12/2010 BMI (ht and wt on same day) for age 18+ 03/22/2025 03/22/2024, 07/22/2022, 10/24/2021, Additional history exists Depression screening for age 12+ 03/22/2025 03/22/2024, 07/22/2022, 12/22/2020, Additional history exists Pap test for age 21-65 07/23/2027 , 07/22/2022, 06/15/2016, Additional history exists Tetanus booster 12/11/2033 12/12/2023, 09/12, 06/08/2010 HIV for age 15-65 Completed 05/04/2013, 11/03/2009 Hepatitis C screening for ag e 18-79 Completed 07/22/2022 Procedures Procedure Name Priority Date/Time Associated Diagnosis Comments XR MAMMO BILAT SCREENING Routine 07/10/2024 8:35 AM CDT Multiple sclerosis (HC) LC HCV ANTIBODY RFX TO QUANT PCR Routine 07/22/2022 8:20 AM CDT Need for hepatitis C screening test HPV HIGH RISK Routine 07/22/2022 8:00 AM CDT Screening for cervical cancer ANTI HIV 1/2 Routine 05/04/2013 4:12 PM MORTAR CARRIER Supervision of other normal (HC) from Last 3 Months or Most Recently Relevant to Health Maintenance Results * XR MAMMO BILAT SCREENING (07/10/2024 8:35 AM CDT) Anatomical Region Laterality Modality BREASTS, Breast Left, Breast Right Bilateral Mammography Impressions 07/10/2024 5:04 PM CDT There is no radiographic evidence for malignancy. Recommend annual mammograms. MAMMOGRAM ASSESSMENT: ACR 1 Negative PATIENTS: You will also receive a letter with your examination results in an easy to read format. If you have questions about your results, please contact your referring provider. Narrative 07/10/2024 5:04 PM CDT For Patients: As a result of the Century Cures Act, medical imaging exams and procedure reports are released immediately into your electronic medical record. You may view this report before your referring provider. If you have questions, please contact your health care provider. XR MAMMO BILAT SCREENING [[id number]] CLINICAL HISTORY: This is an asymptomatic 39 y.o. patient. INDICATION FOR EXAM: Mammogram Screening. TECHNIQUE: CC and MLO views were obtained. This study was evaluated with the assistance of Computer-Aided Detection. COMPARISON FILM: This is a baseline study. FINDINGS: The breasts are heterogeneously dense, which may obscure small masses. There are no dominant masses, suspicious micro calcifications or areas of architectural distortion. Mechelle Capone DO MAMMO Tata l Result * LC HCV ANTIBODY RFX TO QUANT PCR (07/22/2022 8:20 AM CDT) HCV Ab Non Reactive Non Reactive 07/24/2022 1:08 PM CDT [facility] ([facility] Blood BLOOD SPECIMEN / Unknown Venipuncture / Unknown 07/22/2022 8:20 AM CDT 07/22/2022 8:21 AM CDT Narrative [facility] ([facility]) - 07/24/2022 1:08 PM CDT Performed at: [address] [place] [address], [place], [place] [id number] Rag Production Worker: Kun Grijalva MD, Phone: [phone] Maria L Soriano MD LABORATORY Final Resul t [facility] ([facility]) [address] [place] [address], * HPV HIGH RISK (07/22/2022 8:00 AM CDT) TYPE 16 Negative Negative 07/27/2022 3:52 PM CDT [facility] TRAL LABORATORY TYPE 18 Negative Negative 07/27/2022 3:52 PM CDT [facility] TRAL LABORATORY OTHER HIGH RISK TYPES Negative Negative 07/27/2022 3:52 PM CDT [facility] Other (Cervical) Non-Blood / Unknown 07/22/2022 8:00 AM CDT 07/26/2022 10:45 AM CDT Narrative [facility] - 07/27/2022 3:52 PM CDT HPV types 16, 18, 31, 33, 35, 39, 45, 51, 52, 56, 58, 59, 66 and 68 DNA were undetectable or below the pre-set threshold. Methodology: Thiago Dorene 4800 HPV Test Maria L Soriano MD MICROBIOLOGY Final Resul t [facility] [address] [place] [address], [place] * ANTI HIV 1/2 (05/04/2013 4:12 PM MORTAR CARRIER) ANTI HIV 1/2 Non-reacti ve [facility] Blood specimen (specimen) BLOOD SPECIMEN / Unknown 05/04/2013 4:12 PM MORTAR CARRIER 05/04/2013 4:02 PM MORTAR CARRIER Rashida Evans MD SEND OUTS Final Resu lt [facility] INTERNAL ZIP [id number] [place] [address] from Last 3 Months or Most Recently Relevant to Health Maintenance Insurance BLUE CROSS OF NON-CO-ITS Advance Directives * Full Code (Latest Code [...] 8:22 PM 06/08/2010 4:31 PM Care Teams Radio Equipment Repairer Relationship Specialty [place] [address] [place] [address] PCP - General Family Practice 12/21/23
[2024-09-17 11:59] VITALS: BP 120/85; PULSE 104; RESP 16; TEMP 36.3; O2SAT 96; BMI 25.6
--- NOTE | 2024-09-17 12:22 | CRLHL7_ITS ---
For Patients: As a result of the Century Cures Act, medical imaging exams and procedure reports are released immediately into your electronic medical record. You may view this report before your referring provider. If you have questions, please contact your health care provider. Indication: Left-sided numbness. History of multiple sclerosis. Technique: Multiplanar multisequence noncontrast MR images of the brain. Comparison: MRI brain 06/04/2024. Findings: Multiple FLAIR hyperintense lesions in the supratentorial white matter are new compared to the prior MRI, including notable lesions within the medial right frontal centrum semiovale (series 4, image 31), inferior right parietal white matter with extension into the right corpus callosum splenium (series 4, image 25), anterior right frontal white matter (series 4, image 23), right hemipons (series 4, image 16), and right brachium pontis (series 4, image 14). Interval decreased size of small FLAIR hyperintense lesions within the posterolateral right frontal subcortical white matter (series 4, image 31) and left badillo radiata (series 4, image 26). Mild FLAIR hyperintense lesions in the supratentorial infratentorial white matter are otherwise not significantly changed. Mild T1 hypointense lesion load. The ventricles are normal in size. No midline shift. No diffusion restriction to suggest acute infarction. No intracranial hemorrhage or pathologic extra-axial fluid collection. The major arterial flow voids of the skull base are preserved. Globes are symmetric. [id number]-tv-[id number] paranasal sinus mucosal thickening. Trace left mastoid fluid. Impression: 1. Multiple new FLAIR hyperintense lesions in the supratentorial and infratentorial white matter are highly concerning for recent demyelinating plaques on this noncontrast exam. Notable lesions involve the right frontal and right parietal white matter as well as the right hemipons. 2. Interval decreased size of small FLAIR hyperintense lesions within the posterolateral right frontal subcortical white matter and left badillo radiata. Mild FLAIR hyperintense lesions in the supratentorial infratentorial white matter are otherwise not significantly changed. Mild T1 hypointense lesion load. Dictated by Edinson Mims MD @ 09/17/2024 1:08:05 PM (Electronically Signed)
--- OUTSIDE RECORDS SUMMARY | 2024-09-17 15:43 | XMS_ITS | Clinical Summary ---
Author Organization [facility] Address [address] [facility] , [address] [place] [address] Phone Care Team Providers Care Card Writer Hand Name Role Phone 2CareTeamNurse-MA, 2CareTeamNurse-MA Unavailable Unavailable Conditions or Problems Problem Name Problem Code Onset Date Status Entry Date Provider Comment Standard Description Annotate Vitamin D deficiency [id number] (SNOMED CT) Active Amy Martinez PA-C Vitamin D deficiency Multiple sclerosis 49173942 (SNOMED CT) Active Mechelle Capone DO Multiple sclerosis Medications Medication Instructions Start Date Stop Date Generic Name [facility] Provider VITAMIN D (ERGOCALCIFER OL) 1.25 MG (10359 UT) CAPS Take 1 tab PO q weekly for 8 weeks ergocalciferol (vitamin d2) [id number] Mechelle Capone DO DEXCOM G7 SENSOR blood-glucose sensor [id number] Mechelle Capone DO Medications Administered No information [...] count, blood NEUTRO COUNT 8088 CELLS/UL 10*3/mm3 0232-4542 H neutrophil count, blood MPV 11.4 fL [...] Type Date Detail Appointment 08:30 AM [address] [facility], [facility] [address], [place], [address], Appointment 02:00 PM Mechelle Missael johnson DO, [address] [facility], [facility] [address], [place], [address], Referral Other Referral Referral Other Referral Pending [...] Infusion #1: Acute MS Flare/Optic Neuritis/Transverse Myelitis CPT-B1633G ProHance Gadolinium-based MR Contrast - 1 5 ml vial CPT-13387 MRI Brain W/WO CPT-O8940Y ProHance Gadolinium-based MR Contrast - 1 5 ml vial [id number] MRI-Brain W/WO MS Protocol 2 ORDERS Vitamin D 25 Hydroxy ORDERS Patient Instructions ORDERS Patient Instructions ORDERS MS Education with JENNA 06/12 CPT-I2083Z ProHance Gadolinium-based MR Contrast - 1 5 ml vial CPT-06268 MRI Cervical W/WO CPT-63169 MRI Thoracic W/WO [id number] MRI-Thoracic W/WO MS Protocol [id number] MRI-Cervical W/WO MS Protocol CPT-P3153K ProHance Gadolinium-based MR Contrast - 1 5 [...]
--- NOTE | 2024-09-17 16:57 | ED_ITS ---
HPI - General Adult General Date Seen: 09/17/24 Chief complaint: Neuro Symptoms/Altered Deficit Stated complaint: L side numb, trouble walking Time Seen by Provider: 09/17/24 15:25 History of Present Illness HPI narrative: Patient is a 39-year-old woman with known underlying MS, seen here in May of this year with a flare of her MS treated with prednisone. She notes for the past couple of weeks she has had numbness which has been gradually worsening starting with her left face and then her left body. She has had some problems with coordination in the left side as well. Called her neurology clinic today, she is followed by Dr. Capone at [facility]. She says they told her to go to the ER because an outpatient workup ?could take days. She tells me she is scheduled to start Ocrevus injections on of this week. Related Data Home Medications ?Medication ?Instructions ?Recorded ?Confirmed ergocalciferol (vitamin D2) 1,250 1 PO 09/17/24 mcg (50,000 unit) capsule Allergies Allergy/AdvReac Type Severity Reaction Status Date / Time No Known Drug Allergies Allergy Verified 06/02/24 16:29 Review of Systems Status of ROS: Reports: 10 or more systems reviewed and unremarkable except as noted in History and below PFSH [facility] Social History Smoking Status: Current every day smoker What tobacco products do you use: cigarettes Smoking packs per day: 0.5 Smoking cigarettes per day: 10.0 Years smoked: 10 Smoking pack-years: 5.00 Do you use any of these nicotine containing products: Vaping Products Second hand tobacco smoke exposure: Yes How often do you have a drink containing alcohol: monthly or less AUDIT-C Alcohol total score: 1 Non-prescribed substance use: denies use Exam Narrative: Exam Narrative: Vital signs reviewed In general, alert, nontoxic Head: Normocephalic, atraumatic. Eyes: Sclera clear. Pupils equal and reactive. ENT: Mucous membranes moist. Neck: Supple without adenopathy. Heart: Regular rate and rhythm without murmur. Lungs: Clear. No increased work of breathing, crackles or wheezes. Abdomen: Soft, nontender to palpation. Extremities: Well perfused, pulses intact. No significant edema. Neurologic: Alert, conversant. Speech fluent, face symmetric. Moves all extremities equally. Strength is actually 5 of 5 in bilateral upper and lower extremities. Sensation diminished on the left side diffusely. Skin: Warm, dry well perfused. Affect: Normal. Const: Vital Signs, click to edit/add: Vital Signs - 24 hr 09/17/24 11:59 09/17/24 17:31 Temperature 97.4 F L Pulse Rate [Pulse Oximeter] 104 H 97 Respiratory Rate 16 16 Blood Pressure [Ri ght Upper Arm] 120/85 114/80 Pulse Oximetry 96 99 Oxygen Delivery Me thod Room Air Room Air Course Course ED Course: I did do an MRI here without contrast. This is read by Radiology compared to May of this year as showing multiple FLAIR hyperintense lesions which are new compared to May including the medial for right frontal centrum semiovale a inferior right parietal white matter with extension into the right corpus callosum splenium, anterior right frontal white matter, right olivia eb, and right brachium pontis. I discussed this the patient. I have call out to her MRI group. As of this time I have not heard back from them as to best management strategy for this. Ultimately had to call the on-call physician as the patient's neurologist did not call back. The on-call physician, Dr. Castro, recommended checking routine blood work, urinalysis, chest x-ray to look for significant infection or metabolic disturbance. He recommended 1000 mg of Solu-Medrol here today and then for the patient to call her neurologist tomorrow for further instructions. Chest x-ray by my review was clear, radiology read this is negative. Urinalysis showed positive nitrates but was otherwise negative. Patient does not have any urinary symptoms, she had moderate squamous cells, and overall I do not see clear reason to treat this at this time. I did discuss this with her, if she develops urinary symptoms or if her neurologist would like to treat this, they can certainly do that. Her blood sugar is elevated at 283, she does have a history of diabetes. Solu-Medrol given, patient will be discharged home. Certainly can return if she has worsening or new symptoms, otherwise follow-up with her neurologist by phone tomorrow and then she will start her Ocrevus injections on . Vital Signs Vital signs: Initial Vital Signs Temperature 97.4 F L 09/17/24 11:59 Temperature Source Temporal Artery Scan 09/17/24 11:59 Pulse Rate 104 H 09/17/24 11:59 Respiratory Rate 16 09/17/24 11:59 Blood Pressure 120/85 09/17/24 11:59 Blood Pressure Mean 96 09/17/24 11:59 Blood Pressure Position Sitting 09/17/24 11:59 Pulse Oximetry 96 09/17/24 11:59 Oxygen Delivery Method Room Air 09/17/24 11:59 Vital Signs Temperature 97.4 F L 09/17/24 11:59 Pulse Rate 104 H 09/17/24 11:59 Respiratory Rate 16 09/17/24 11:59 Blood Pressure 120/85 09/17/24 11:59 Pulse Oximetry 96 09/17/24 11:59 Oxygen Delivery Method Room Air 09/17/24 11:59 Temperature 97.4 F L 09/17/24 11:59 Pulse Rate 97 09/17/24 17:31 Respiratory Rate 16 09/17/24 17:31 Blood Pressure 114/80 09/17/24 17:31 Pulse Oximetry 99 09/17/24 17:31 Oxygen Delivery Method Room Air 09/17/24 17:31 Medications Administered Medications: Discontinued Medications Generic Name Dose Route Start Last Admin Trade Name Freq PRN Reason Stop Dose Admin Methylprednisolone Sodium Succinate 1,000 mg 09/17/24 18:41 09/17/24 19:14 Methylprednisolone Sod Succ 62.5 Mg/Ml (125) IVP 09/17/24 18:42 1,000 mg ONCE ONE Administration Medical Decision Making Lab Data Labs: Lab Results 09/17/24 09/17/24 Range/Units 17:16 17:35 WBC 12.71 H (4.50-11.00) K/uL RBC 5.16 (4.00-5.20) m/uL Hgb 13.9 (12.0-16.0) gm/dL Hct 42.2 (33.0-51.0) % MCV 82 (80-100) fL MCH 27 (26-34) pg MCHC 33 (32-36) gm/dL RDW Coeff of Cecelia 13.9 (11.5-15.5) % Plt Count 311 (140-440) K/uL Neut % (Auto) 74.5 H (42.0-72.0) % Lymph % (Auto) 19.0 L (20-44) % [place] % (Auto) 5.0 (0.0-11.0) % Eos % (Auto) 1.1 (0.0-7.0) % Baso % (Auto) 0.2 (0.0-3.0) % Neut # (Auto) 9.50 H (1.7-7.0) K/uL Lymph # (Auto) 2.40 (0.90-2.90) K/uL [place] # (Auto) 0.60 (0.00-0.90) K/UL Eos # (Auto) 0.10 (0.00-0.50) K/uL Baso # (Auto) 0.00 (0.00-0.30) K/uL Abs Immat Gran (auto) 0.00 (0.00-0.30) K/uL Imm/Tot Granulo (auto) 0.2 % Sodium 134 L (135-149) mmol/L Potassium 4.3 (3.6-5.1) mmol/L Chloride 97 (96-114) mmol/L Carbon Dioxide 28 (20-32) mmol/L Anion Gap 9 (7-15) mEq/L BUN 14 (5-24) mg/dL Creatinine 1.0 (0.5-1.5) mg/dL Estimated Creat Clear 59.74 Estimated GFR 73 ml/min Glucose 283 H (60-115) mg/dL Calcium 9.7 (8.4-10.6) mg/dL Urine Color Yellow (Yellow) Urine Appearance Slightly Cloudy A (Clear) Urine pH 6.0 (5.0-8.5) Ur Specific Reese > 1.030 H (1.000-1.030) Urine Protein Trace A (Negative) Urine Glucose (UA) Negative (Negative) Urine Ketones 2+ A (Negative) Urine Blood Trace-intact A (Negative) Urine Nitrite Positive A (Negative) Urine Bilirubin Negative (Negative) Urine Urobilinogen 0.2 (0.2-1.0) Ur Leukocyte Esterase Negative (Negative) Urine RBC 2-5 A (0-2) Urine WBC 2-5 (0-5) Ur Squamous Epith Cells Few (None-Few) Urine Bacteria Many A (None) Discharge Plan Discharge Clinical Impression: Multiple sclerosis Patient Disposition: Home, Self-Care Condition: Stable Instructions: Multiple Sclerosis (DC) Additional Instructions: Please call your primary neurologist tomorrow for further treatment. Today, your white blood cell count was very minimally elevated at 12.7, hemoglobin was normal. Your metabolic panel was notable for an elevated blood sugar of 283. Your urinalysis was concentrated, showed positive nitrites, 2 to fair I have red cells and 2-5 white cells but also had squamous cells. In the absence of any urinary symptoms, this is likely to be contaminant. If you develop urinary symptoms or fevers, you should be re-evaluated. Prescriptions: No Action ergocalciferol (vitamin D2) 1,250 mcg (50,000 unit) capsule 1 PO Follow Up/Referrals: Jia Gutierrez MD [Primary Care Provider, Family Practice] Stand Alone Forms: [employer] Software Info Instructions
--- NOTE | 2024-09-17 17:16 | CRLHL7_ITS ---
For Patients: As a result of the Century Cures Act, medical imaging exams and procedure reports are released immediately into your electronic medical record. You may view this report before your referring provider. If you have questions, please contact your health care provider. Indication: MS. Left-sided numbness. Technique: Frontal and lateral chest radiographs. Comparison: None. Findings: Lungs are clear. No consolidation, effusion or pneumothorax. Cardiomediastinal silhouette is within normal limits. No significant osseous or soft tissue findings. Impression: 1. No acute cardiopulmonary process. Dictated by Jose Raul Soares MD @ 09/17/2024 6:13:19 PM (Electronically Signed)
[2024-09-17 17:31] VITALS: BP 114/80; PULSE 97; RESP 16; O2SAT 99
[2024-09-17 17:36] LABS: Appearance Urine Slightly Cloudy (Clear)
[2024-09-17 17:43] LABS: Hematocrit 42.2 % (33.0-51.0); Hemoglobin* 13.9 gm/dL (12.0-16.0); Immature Granulocytes Pct Auto 0.2 %; Mean Corpuscular HGB Conc 33 gm/dL (32-36); Mean Corpuscular Hemoglobin 27 pg (26-34); Mean Corpuscular Volume 82 fL (80-100); RDW Coefficient of Variation % 13.9 % (11.5-15.5); Red Blood Count 5.16 m/uL (4.00-5.20); White Blood Count* 12.71 K/uL (4.50-11.00)
[2024-09-17 17:49] LABS: Immature Granulocytes Abs Auto 0.00 K/uL (0.00-0.30); Lymphocytes Absolute Auto 2.40 K/uL (0.90-2.90); Slide Review Reflex No
[2024-09-17 17:59] LABS: Chloride* 97 mmol/L (96-114); Potassium* 4.3 mmol/L (3.6-5.1); Sodium* 134 mmol/L (135-149)
[2024-09-17 18:02] LABS: Anion Gap 9 mEq/L (7-15); Blood Urea Nitrogen* 14 mg/dL (5-24); Calcium* 9.7 mg/dL (8.4-10.6); Carbon Dioxide* 28 mmol/L (20-32); Creatinine* 1.0 mg/dL (0.5-1.5); Est. Creatinine Clearance* 59.74; Estimated Glomerular Filt Rate 73 ml/min; Glucose* 283 mg/dL (60-115)
[2024-09-17] MEDS: METHYLPREDNISOLONE SOD SUCC 62.5 MG/ML (125) 1000 MG IVP (19:14)
== END 2024-09-17 19:32 | disposition home or self-care (01) ==
PROVIDERS: Emergency Provider Emergency Medicine; PCP Family Medicine
DX: G35 Multiple sclerosis (principal); Z79.52 Long term (current) use of systemic steroids
CPT/HCPCS: 36415; 70551; 71046; 80048; 81001; 85025; 87086; 96374; 99284; 99285; J2919